=== PATIENT | male | born 1965 | race Caucasian/White ===

== ENCOUNTER → 2022-02-18 | Outpatient (CLI) | payer MEDICARE ==
--- NOTE | 2022-02-18 14:08 | MR ---
EXAMINATION TYPE: MR shoulder LT wo con DATE OF EXAM: 02/18/2022 2:00 PM COMPARISON: NONE HISTORY: PAIN IN LEFT SHOULDER TECHNIQUE: Multiplanar multispin echo imaging of the left shoulder was performed. FINDINGS: Rotator cuff : Full thickness retracted tear supraspinatus tendon with fluid filled gap of 2.7 cm. No evidence for muscular atrophy. Partial tear infraspinatus tendon. Tendinosis of the subscapularis te ndon. Elevation humeral head relative to the central glenoid axis. Bursa: No bursal effusion or thickening is seen. Musculature: There is no muscular tear, contusion, or atrophy. Acromioclavicular joint : Severe degenerative change AC joint. Subacromial spurring. Severe subacromi al impingement. Osseous structures : There are no fractures or regions of abnormal bone marrow signal intensity. Long biceps tendon : The biceps tendon is normally situated within the bicipital groove. No complete or partial biceps tendon tear is present. Glenohumeral Joint fluid : There is no glenohumeral joint effusion. Cartilage and Bone : No focal hyaline cartilage defects are noted. No Hill-Sachs, reverse Hill-Sachs, or bony Bankart lesions are seen. Labrum : There are no SLAP or soft tissue Bankart lesions. No paralabral cysts are seen. OTHER FINDINGS : none IMPRESSION: 1. Full-thickness tear with retraction supraspinatus tendon. Severe subacromial impingement. Partial tear infraspinatus tendon.
== END | disposition home or self-care (01) ==
LOC: RADMRIMAIN 13:15
PROVIDERS: ATTEND Orthopaedic Surgery
DX: M75.111 Incomplete rotator cuff tear or rupture of right shoulder, not specified as traumatic (principal); M19.012 Primary osteoarthritis, left shoulder; M62.81 Muscle weakness (generalized)